=== PATIENT | male | born 1990 | race Caucasian/White ===

== ENCOUNTER 2023-03-12 15:16 | Emergency (ER) | payer BC, SELFPAY ==
--- NOTE | 2023-03-12 15:31 | ED.URI ---
HPI - URI/Sore Throat General Chief Complaint: Upper Respiratory Infection Stated Complaint: cough Time Seen by Provider: 03/12/23 15:53 Source: patient and RN notes reviewed Mode of arrival: ambulatory Limitations: no limitations History of Present Illness HPI Narrative: 32-year-old male presents with concern for cough for 4 days. Reports he has been around friends and family who are sick. He denies nasal congestion, rhinorrhea, sore throat, fever, body aches, chills, sweats. He reports he has taken [id number] cough medicine without relief MD elicited complaint: cough Related Data Allergies Allergy/AdvReac Type Severity Reaction Status Date / Time No Known Allergies Allergy Verified 03/12/23 15:38 Review of Systems Review of Systems: CONSTITUTIONAL: Denies malaise, chills, sweats, or fever. EYES: Denies visual changes, redness, or discharge. ENT: Denies rhinorrhea, congestion, sinus pain, otalgia and sore throat. CARDIOVASCULAR: Denies chest pain, palpitations, or edema. RESPIRATORY: Reports cough. Denies dyspnea. GASTROINTESTINAL: Denies abdominal pain, nausea, vomiting, diarrhea SKIN: Denies rash or itching. MUSCULOSKELETAL: Denies myalgia. NEUROLOGIC: Denies headache. All systems reviewed & are unremarkable except as noted in HPI and below PMFSH Comments At time of signature, agree with nursing past medical, surgical, social and family history. There is no relevant family history pertinent to the presenting complaint Exam Narrative: GENERAL: Well-appearing, well-nourished, and in no acute distress. HEAD: Normocephalic EYES: PERRLA, conjunctivae clear ENT: Nares clear, turbinates edematous and erythematous, clear discharge. Mucous membranes moist. TM pearly diamond with dull light reflex bilaterally; no tragal tenderness. Oropharynx not erythematous without lesions. Tonsils not enlarged and without exudate, no drooling, no hoarseness, no trismus, uvula midline. NECK: Supple. No lymphadenopathy CHEST: Clear to auscultation, breath sounds equal. No wheezing, rhonchi, rales, or stridor. No respiratory distress, speaks in full sentences. HEART: Regular rate and rhythm. No murmur heard. SKIN: Warm, dry, no rash. NEURO: Alert and oriented x3. PSYCH: Normal mood and affect Course Course Emergency Course: Patient is aware of diagnosis, understands and agrees to treatment plan. Anticipatory guidance given. Patient agrees to follow-up as directed and is aware of reasons to seek care at the emergency department. Portions of this record may have been created with voice recognition software Level of Care: Express Care Visit Vital Signs Vital signs: Reviewed. MDM - URI/Sore Throat MDM Narrative Medical decision making narrative: Differential diagnosis considered: Walker virus, strep pharyngitis, allergic rhinitis, upper respiratory tract infection, sinusitis, rhinosinusitis, nasopharyngitis. viral pharyngitis, otitis media, otitis externa, pneumonia, bronchitis, viral cough syndrome, viral syndrome, and influenza. Exam findings show no acute concerns or changes; patient is non-toxic appearing and is in no distress. Patient is appropriate for outpatient treatment and follow-up. Lab Data Attestation: I reviewed the patient's lab results. Critical Care Time Critical Care Time Critical Care Time: No Discharge Plan Discharge Clinical Impression: Bronchitis Patient Disposition: Home, Self-Care Condition: Stable Instructions: Acute Bronchitis (ED) Additional Instructions: Viral illness may last between 7-21 days; antibiotics do not cure viral illness and are NOT recommended at this time. Recommend antihistamine such as Benadryl at night time and Zyrtec or Little during the day Cough syrup may cause drowsiness; avoid driving or take it at night time. When you cannot use the cough syrup that makes you drowsy you can use the benzonatate for cough Also, recommend symptomatic treatment includes: res
[2023-03-12 15:38] VITALS: BP 122/89; PULSE 80; RESP 18; TEMP 36.9; O2SAT 99
== END 2023-03-12 16:05 | disposition home or self-care (01) ==
PROVIDERS: Emergency Provider Nurse Practitioner
DX: J40 Bronchitis, not specified as acute or chronic (principal); Z20.822 Contact with and (suspected) exposure to COVID-19
CPT/HCPCS: 87426; 99213; C9803; G0463

== ENCOUNTER 2023-10-01 16:09 | Emergency (ER) | payer BC, SELFPAY ==
[2023-10-01 16:14] VITALS: BP 141/83; PULSE 72; RESP 16; TEMP 36.6; O2SAT 100
--- NOTE | 2023-10-01 16:38 | ED.URI ---
HPI - URI/Sore Throat General Chief Complaint: Upper Respiratory Infection Stated Complaint: Fever,Nausea,Sore Throat,Cough Time Seen by Provider: 10/01/23 16:25 Source: patient, RN notes reviewed and old records reviewed Mode of arrival: ambulatory Limitations: no limitations History of Present Illness HPI Narrative: 33 year old male who presents to [facility] care with complaints of sore throat since yesterday afternoon, some nausea, cough, runny nose and has felt feverish but has not taken his temperature. Patient reports that son tested positive for strep throat last week and he has had past history of strep throat. Patient denies any vomiting or diarrhea, no body aches is concerned since he is going out of town Sunday for business trip. Patient reports that he has taken DayQuil for his symptoms. MD elicited complaint: cough and sore throat Pertinent past history: other (previous strep throat, positive exposure to strep) Onset (ago): day(s) (day 2 of symptoms) Consistency: constant Pain scale (0-10): 3 Description of mucous: clear Able to tolerate fluids by mouth: Yes Exacerbating factors: swallowing Treatments prior to arrival: other (Dayquil) Related Data Home Medications Medication Instructions Recorded Confirmed azithromycin 250 mg tablet mg 10/01/23 ergocalciferol (vitamin D2) 1,250 1,250 mcg PO WEEKLY 10/01/23 10/01/23 mcg (50,000 unit) capsule Allergies Allergy/AdvReac Type Severity Reaction Status Date / Time No Known Allergies Allergy Verified 10/01/23 16:17 Review of Systems Review of Systems: CONSTITUTIONAL: Denies malaise, chills, sweats, reports has felt feverish, hasn't taken temp EYES: Denies visual changes, redness, or discharge. ENT: Reports rhinorrhea, congestion, sinus pain, no otalgia and positive for sore throat. CARDIOVASCULAR: Denies chest pain, palpitations, or edema. RESPIRATORY: Reports cough.? Denies dyspnea. GASTROINTESTINAL: Denies abdominal pain, reports nausea,no vomiting, diarrhea SKIN: Denies rash or itching. MUSCULOSKELETAL: Denies myalgia. NEUROLOGIC: Denies headache. All systems reviewed & are unremarkable except as noted in HPI and below PMFSH Past Medical History Medical History (Updated 10/02/23 @ 14:22 by Cristina Merlos NP) Bronchitis COVID-19 Strep pharyngitis Social History Social History (Updated 10/02/23 @ 14:18 by Cristina Merlos NP) Smoking status: Never smoker Alcohol intake: current Alcohol use details: rare social Substance use type: does not use Living arrangements: with family Gender identity (if verbalized by the patient): Male Comments At time of signature, agree with nursing past medical, surgical, social and family history. There is no relevant family history pertinent to the presenting complaint Exam Narrative: GENERAL: Well-appearing, well-nourished, and in no acute distress. HEAD: Normocephalic EYES: PERRLA, conjunctivae clear ENT: Nares clear, turbinates edematous and erythematous, clear discharge. Mucous membranes moist. TM pearly diamond with dull light reflex bilaterally; no tragal tenderness. Oropharynx erythematous without lesions. Tonsils with patches of redness, not enlarged and without exudate, no drooling, no hoarseness, no trismus, uvula midline.post nasal discharge noted NECK: Supple. No lymphadenopathy CHEST: Clear to auscultation, breath sounds equal. No wheezing, rhonchi, rales, or stridor. No respiratory distress, speaks in full sentences dry cough noted SAO2 100% on room air. HEART: Regular rate and rhythm. No murmur heard. SKIN: Warm, dry, no rash. NEURO: Alert and oriented x3. PSYCH: Normal mood and affect Course Course Emergency Course: Patient is aware of diagnosis, understands and agrees to treatment plan.? Anticipatory guidance given.? Patient agrees to follow-up as directed and is aware of reasons to seek care at the emergency department. Portions of th
== END 2023-10-01 17:10 | disposition home or self-care (01) ==
PROVIDERS: Emergency Provider Registered Nurse
DX: J02.9 Acute pharyngitis, unspecified (principal); Z20.822 Contact with and (suspected) exposure to COVID-19; Z86.16 Personal history of COVID-19
CPT/HCPCS: 87081; 87426; 87804; 87880; 99213; G0463